=== PATIENT | female | born 1970 | race Caucasian/White ===

== ENCOUNTER 2022-03-08 21:45 | Emergency (ER) | payer OTHER ==
[~2022-03-08] VITALS: Ht 170.2 cm; Wt 77.1 kg
[~2022-03-08 21:45] MED LIST: IBUPROFEN800 MG PO; KETO10TA2 PO; ORPH100T PO; SYMBICORT 16010.2 GM IH; ZYNCOF 20-400120 ML PO
[2022-03-08] MEDS ORDERED: DICLOFENAC SODI75 MG PO (22:24)
[2022-03-08] MEDS ORDERED: NORFLEX100MG PO (22:24)
== END 2022-03-08 22:36 | disposition home or self-care (01) ==
LOC: ER 21:45
DX: M54.89 Other dorsalgia (principal)

== ENCOUNTER 2022-03-20 21:51 | Emergency (ER) | payer OTHER ==
[~2022-03-20] VITALS: Ht 170.2 cm; Wt 95.3 kg
[~2022-03-20 21:51] MED LIST changes: +DICLOFENAC SODI75 MG PO; +NORFLEX100MG PO
[2022-03-20] MEDS ORDERED: DICLOFENAC SOD100 MG PO (22:37)
[2022-03-20] MEDS ORDERED: METROGEL60 GM VAG (22:58)
[2022-03-20] MEDS ORDERED: ZITHROMAX200 MG PO (22:58)
== END 2022-03-21 | disposition home or self-care (01) ==
LOC: ER 21:51
DX: J06.9 Acute upper respiratory infection, unspecified (principal); J45.909 Unspecified asthma, uncomplicated

== ENCOUNTER 2022-07-10 13:20 | Outpatient (CLI) | payer OTHER ==
[~2022-07-10 13:20] MED LIST changes: +DICLOFENAC SOD100 MG PO; +METROGEL60 GM VAG; +ZITHROMAX200 MG PO
== END 2022-07-10 13:24 | disposition home or self-care (01) ==
LOC: LAB 13:20
PROVIDERS: ATTEND Obstetrics & Gynecology
DX: Z20.818 Contact with and (suspected) exposure to other bacterial communicable diseases (principal); Z20.828 Contact with and (suspected) exposure to other viral communicable diseases

== ENCOUNTER 2022-10-06 22:25 | Emergency (ER) | payer OTHER ==
[~2022-10-06] VITALS: Ht 170.2 cm; Wt 72.6 kg
[2022-10-07] MEDS ORDERED: ZYNCOF 20-400120 ML PO ×2 (03:36→03:38)
[2022-10-07] MEDS ORDERED: ALBUTEROL2.5 MG/3 M IH (03:36)
[2022-10-07] MEDS ORDERED: PAXLOVID 300-11 EACH PO (03:36)
[2022-10-07] MEDS ORDERED: BUDESONIDE0.5 MG/2 M IH (03:36)
== END 2022-10-07 03:46 ==
LOC: ER 22:25
DX: U07.1 COVID-19 (principal)